=== PATIENT | female | born 1980 | race Caucasian/White ===

== ENCOUNTER 2023-03-05 19:00 | Emergency (ER) | payer MEDICAID, OTHER ==
[~2023-03-05] VITALS: Ht 160 cm; Wt 68.0 kg
[2023-03-05 19:18] VITALS: BP 111/73; PULSE 84; RESP 12; TEMP 97; O2SAT 98
== END 2023-03-05 21:22 | disposition left against medical advice (07) ==
LOC: MED 19:00
DX: Z00.8 Encounter for other general examination (principal); Z53.21 Procedure and treatment not carried out due to patient leaving prior to being seen by health care provider; V49.88XA Car occupant (driver) (passenger) injured in other specified transport accidents, initial encounter; Y93.89 Activity, other specified; Y92.89 Other specified places as the place of occurrence of the external cause; Y99.8 Other external cause status
CPT/HCPCS: 99281